=== PATIENT | female | born 1995 | race Two or more races ===

== ENCOUNTER 2017-02-02 16:53 | Observation (INO) | payer SELFPAY ==
[2017-02-02 17:46] LABS: BILIRUBIN,URINE NEGATIVE (NEG); GLUCOSE,URINE NEGATIVE (NEG); NITRITE,URINE NEGATIVE (NEG); PROTEIN,URINE NEGATIVE (NEG-TRACE)
[2017-02-02 18:00] LABS: BACTERIA,URINE MODERATE /HPF (0-FEW); SQUAMOUS EPITHELIAL CELL,UR MANY /LPF
[2017-02-02 19:32] LABS: BASO # 0.1 x10^3/uL (0.0-0.2); BASO % 1 % (0-3); EOS % 10 % (0-3); HEMATOCRIT 35.5 % (36.0-47.0); HEMOGLOBIN 12.3 g/dL (12.0-15.5); LYMPH # 2.7 x10^3/uL (1.0-4.8); LYMPH % 22 % (24-48); MEAN CORPUSCULAR HEMOGLOBIN 31 pg (25-35); MEAN CORPUSCULAR HGB CONC 35 g/dL (31-37); MEAN CORPUSCULAR VOLUME 91 fL (79-100); MONO % 4 % (0-9); NEUT % 63 % (31-73); PLATELET COUNT 234 x10^3/uL (140-400); RED BLOOD COUNT 3.92 x10^6/uL (3.50-5.40); RED CELL DISTRIBUTION WIDTH 12.5 % (11.5-14.5); WHITE BLOOD COUNT 12.4 x10^3/uL (4.0-11.0)
--- NOTE | 2017-02-02 19:43 | RAD ---
OB ultrasound greater than 14 weeks 02/02/2017 Clinical History: Third trimester with vaginal spotting for 2 hours. Technique: A real-time ultrasound examination of the gravid uterus was performed. Multiple images were obtained. Findings: There is a single living IUP. The fetus is in a cephalic position. cardiac and somatic activity is seen. The heart rate is 130 beats per minutes. The maternal cervix is closed. It measures 3.7 cm in length. The placenta is in anterior. No abnormality is seen. The amniotic fluid volume is within the lower limits of normal. The AMADA measures 7.9. Neither maternal ovary is visualized. The following measurements were obtained: BPD 8.38cm 33 weeks 5 days HC 29.8 cm 33weeks 0 days AC 27.6 cm 31weeks 5 days FL 6.02 cm 31 weeks 2 days The estimated gestational age by ultrasound is 32 weeks 3 days plus or minus a standard deviation of 3 weeks. The estimated date of delivery by ultrasound is 03/27/2017. The estimated weight is 1853 g +/- 274 g (4 lbs. 1 oz.). Evaluation of anatomy is limited due to the advanced age of this gestation. There is a normal four-chamber heart. The kidneys, stomach, urinary bladder and spine are within normal limits. There is a normal three-vessel umbilical cord with a normal abdominal cord insertion. The brain is not well evaluated. Impression: Single living IUP with an estimated gestational age by ultrasound of 32 weeks 3 days +/- a standard deviation of 3 weeks. The estimated date of delivery by ultrasound is 03/27/2017. Electronically signed by: Dwayne Guaman MD (02/02/2017 7:39 PM) [facility]
== END 2017-02-02 20:35 | disposition home or self-care (01) ==
LOC: 3 SO LND 16:53
PROVIDERS: ADMIT Obstetrics & Gynecology; ATTEND Obstetrics & Gynecology
DX: Z34.93 Encounter for supervision of normal pregnancy, unspecified, third trimester (principal); Z3A.32 32 weeks gestation of pregnancy
CPT/HCPCS: 36415; 76815; 81001; 85025; 86850; 86900; 86901; 87086; G0378; G0379